=== PATIENT | male | born 1985 | race Caucasian/White ===

== ENCOUNTER → 2016-07-12 | Outpatient (CLI) | payer OTHER ==
[~2016-07-12] MED LIST: ALLERGY INJECTION SUBQ; AZASAN100 M1 PO; CLOBETASOL 0.0560 GM TOP; HYDROXYZINE HCL10 MG PO; LEXAPRO PO; LOTEMAX5 ML OP; NASAL SPRAY; OMEPRAZOLE20 M1 PO; PATADAY2.5 ML OP; [UNRECOGNIZED DRUG - OTHER]
== END | disposition home or self-care (01) ==
LOC: CSSDAY 10:15
DX: K50.90 Crohn's disease, unspecified, without complications (principal); Z79.899 Other long term (current) drug therapy
CPT/HCPCS: 96413; 96415; J1745

== ENCOUNTER → 2016-09-06 | Outpatient (CLI) | payer OTHER | END | disposition home or self-care (01) | LOC: CSSDAY 10:10 | DX: K50.90 Crohn's disease, unspecified, without complications (principal); Z79.899 Other long term (current) drug therapy | CPT/HCPCS: 96365; 96366; 96374; J1745 ==